=== PATIENT | female | born 1980 | race Caucasian/White ===

== ENCOUNTER → 2018-04-12 | Outpatient (CLI) | payer OTHER ==
--- NOTE | ~2018-04-12 | PATH ---
[facility] [place] [address] PATHOLOGY RPT PROCEDURE Name: DAI SAUCEDA Room #: REG [facility]..#: [id number] Admission: 04/12/18 Date of : 82 Discharge: Report #: [id number] Path Case #: [id number] Note [facility] Accession Number: [id number] TESTS RESULT FLAG UNITS REF RANGE LAB Clinician Provided Cytology Information No. of containers..01 Other (Miscellaneous) Source: RIGHT THYROID DIAGNOSIS: RIGHT THYROID, FINE NEEDLE ASPIRATION INCONCLUSIVE. BETHESDA CATEGORY III. ATYPIA OF UNDETERMINED SIGNIFICANCE. THIS INTERPRETATION INCLUDES EVALUATION OF A CELL BLOCK. Comment: Examination shows a moderately cellular aspirate with macrofollicles showing mild nuclear atypia. The background shows dense colloid. Nuclear features of papillary thyroid carcinoma are not present. Based on the findings, features may be suggestive of a follicular lesion such as an adenoma, Hurthle cell adenoma in addition to other follicular lesions. RNA vial was sent for analysis based on these findings. Nature of this sample precludes exclusion of follicular or Hurthle cell carcinoma. 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 Correlate clinically and folllow up as indicated. This case was coreviewed with Dr. Hector Lomas. Pathologist ICD10: 02 R89.6 Signed out by: Niyah Wilson MD, Pathologist NPI- [id number] Performed by: Silverio Santiago, Commodities Requirements Analyst ([facility]) Gross description: 01 23ML, NONE, CLEAR /LCS FLAG LEGEND: L-Low Normal,H-High Normal,LL-Alert Low,HH-Alert High <-Panic Low,>-Panic High,A-Abnormal,AA-Critical Abnormal Performed at: [facility] [address] [place] [address] [address] [place] [address] Eliezer Michel MD, [address] [address] [address] Niyah Wilson MD, [address] [address] PATHOLOGY RPT PROCEDURE Name: DAI SAUCEDA Room #: REG [facility] Schaeffer#: [id number] Admission: 04/12/18 Date of : 82 Discharge: Report #: [id number] Path Case #: [id number] Specimen Comment: A courtesy copy of this report has been sent to Specimen Comment: [phone]. Specimen Comment: Report sent to Performed at: [address], [place], [place] [id number] MD Eliezer Michel MD Phone: [phone]
== END | disposition home or self-care (01) ==
LOC: ULTRA 09:44
DX: E04.1 Nontoxic single thyroid nodule (principal)